=== PATIENT | male | born 1985 | race African-American/Black ===

== ENCOUNTER 2016-05-16 21:42 | Emergency (ER) | payer OTHER ==
[~2016-05-16] VITALS: Ht 175.3 cm; Wt 101.8 kg
[~2016-05-16 21:42] MED LIST: ALBUTEROL SULF8.5 GM IH; AMOXICILLI200 MG/5 M PO; DELTASONE20 M1 PO; FLEXERIL10 MG PO; KEFLEX500 MG PO; MOTRIN600 MG PO; PERCOCET 5/31 TABLET PO; PREDNISONE20 MG PO; PROVENTIL HFA6.7 GM IH; ULTRAM50 MG PO; VENTOLIN HFA18 GM IH
[2016-05-16 21:45] VITALS: BP 140/77
[2016-05-16] MEDS ORDERED: AMOXICILLIN875 MG PO (23:02)
[2016-05-16] MEDS ORDERED: NORCO 5/3251 TABLET PO (23:02)
== END 2016-05-16 23:13 | disposition home or self-care (01) ==
LOC: EXP 21:42 → EME 21:42 → EXP 23:13
DX: R68.84 Jaw pain (principal); K08.89 Other specified disorders of teeth and supporting structures; R60.0 Localized edema
CPT/HCPCS: 99281; 99284

== ENCOUNTER 2016-08-25 20:51 | Emergency (ER) | payer SELFPAY ==
[~2016-08-25] VITALS: Ht 172.7 cm; Wt 105.1 kg
[~2016-08-25 20:51] MED LIST changes: +AMOXICILLIN875 MG PO; +NORCO 5/3251 TABLET PO
[2016-08-25 21:00] VITALS: BP 147/96
[2016-08-25] MEDS ORDERED: AMOXICILLIN500 MG PO (21:56)
[2016-08-25] MEDS ORDERED: NAPROSYN500 MG PO (21:56)
== END 2016-08-25 22:25 | disposition home or self-care (01) ==
LOC: EME 20:51
DX: K08.89 Other specified disorders of teeth and supporting structures (principal)
CPT/HCPCS: 99281; 99284

== ENCOUNTER 2016-09-04 20:24 | Emergency (ER) | payer SELFPAY ==
[~2016-09-04] VITALS: Ht 172.7 cm; Wt 104.8 kg
[~2016-09-04 20:24] MED LIST changes: +AMOXICILLIN500 MG PO; +NAPROSYN500 MG PO
[2016-09-04] MEDS ORDERED: VENTOLIN HFA18 GM IH (21:31)
[2016-09-04 22:21] VITALS: BP 123/84
== END 2016-09-04 22:22 | disposition home or self-care (01) ==
LOC: EME 20:24
DX: S46.912A Strain of unspecified muscle, fascia and tendon at shoulder and upper arm level, left arm, initial encounter (principal); M25.512 Pain in left shoulder; F17.200 Nicotine dependence, unspecified, uncomplicated; X50.0XXA Overexertion from strenuous movement or load, initial encounter; Y93.89 Activity, other specified
CPT/HCPCS: 73030; 73060; 99281; 99283

== ENCOUNTER 2016-12-07 16:22 | Emergency (ER) | payer SELFPAY ==
[~2016-12-07] VITALS: Ht 175.3 cm; Wt 105.8 kg
[2016-12-07] MEDS ORDERED: KEFLEX500 MG PO (16:35)
[2016-12-07 16:52] VITALS: BP 136/82
== END 2016-12-07 16:52 | disposition home or self-care (01) ==
LOC: EME 16:22
DX: S61.211A Laceration without foreign body of left index finger without damage to nail, initial encounter (principal); L03.012 Cellulitis of left finger; W45.8XXA Other foreign body or object entering through skin, initial encounter
CPT/HCPCS: 99281; 99283

== ENCOUNTER 2017-07-06 02:57 | Emergency (ER) | payer SELFPAY ==
[~2017-07-06] VITALS: Ht 175.3 cm; Wt 107.3 kg
[2017-07-06] MEDS ORDERED: AMOXICILLIN500 MG PO (03:25)
[2017-07-06] MEDS ORDERED: NORCO 5/3251 TABLET PO (03:25)
[2017-07-06 03:52] VITALS: BP 161/84
== END 2017-07-06 03:55 | disposition home or self-care (01) ==
LOC: EME 02:57
DX: R68.84 Jaw pain (principal); Z98.890 Other specified postprocedural states; Z88.6 Allergy status to analgesic agent
CPT/HCPCS: 99281; 99283

== ENCOUNTER 2017-08-28 08:14 | Emergency (ER) | payer SELFPAY ==
[~2017-08-28] VITALS: Ht 175.3 cm; Wt 107.9 kg
[2017-08-28 08:25] VITALS: BP 150/80
[2017-08-28] MEDS ORDERED: AMOXICILLIN500 MG PO (22:12)
[2017-08-28] MEDS ORDERED: PERCOCET 5/31 TABLET PO (22:13)
== END 2017-08-28 11:02 | disposition left against medical advice (07) ==
LOC: EME 08:14
DX: R68.84 Jaw pain (principal); Z53.21 Procedure and treatment not carried out due to patient leaving prior to being seen by health care provider

== ENCOUNTER 2017-08-28 20:30 | Emergency (ER) | payer SELFPAY ==
[~2017-08-28] VITALS: Ht 175.3 cm; Wt 108.7 kg
[2017-08-28] MEDS ORDERED: AMOXICILLIN500 MG PO (22:12)
[2017-08-28] MEDS ORDERED: PERCOCET 5/31 TABLET PO (22:13)
[2017-08-28 22:21] VITALS: BP 157/92
== END 2017-08-28 22:21 | disposition home or self-care (01) ==
LOC: EME 20:30
DX: R68.84 Jaw pain (principal); J45.909 Unspecified asthma, uncomplicated; Z87.891 Personal history of nicotine dependence; Z98.890 Other specified postprocedural states; Z88.6 Allergy status to analgesic agent
CPT/HCPCS: 99281; 99284

== ENCOUNTER 2017-11-01 12:26 | Emergency (ER) | payer SELFPAY ==
[~2017-11-01] VITALS: Ht 175.3 cm; Wt 100.6 kg
[2017-11-01] MEDS ORDERED: PERCOCET 5/31 TABLET PO (13:53)
[2017-11-01 14:12] VITALS: BP 107/89
== END 2017-11-01 14:13 | disposition home or self-care (01) ==
LOC: EME 12:26
DX: R68.84 Jaw pain (principal); Z88.6 Allergy status to analgesic agent
CPT/HCPCS: 70110; 99281; 99284

== ENCOUNTER 2017-11-08 20:50 | Emergency (ER) | payer SELFPAY ==
[~2017-11-08] VITALS: Ht 175.3 cm; Wt 101.0 kg
[2017-11-08] MEDS ORDERED: NORCO 5/3251 TABLET PO (21:33)
[2017-11-08] MEDS ORDERED: PERIDEX473 ML MM (21:33)
[2017-11-08] MEDS ORDERED: CLINDAMYCIN HC300 MG PO (21:33)
[2017-11-08 22:02] VITALS: BP 134/88
== END 2017-11-08 22:03 | disposition home or self-care (01) ==
LOC: EXP 20:50 → EME 20:50 → EXP 22:03
DX: R68.84 Jaw pain (principal); Z88.6 Allergy status to analgesic agent
CPT/HCPCS: 99281; 99283

== ENCOUNTER 2017-11-27 04:51 | Emergency (ER) | payer OTHER ==
[~2017-11-27] VITALS: Ht 175.3 cm; Wt 102.4 kg
[~2017-11-27 04:51] MED LIST changes: +CLINDAMYCIN HC300 MG PO; +PERIDEX473 ML MM
[2017-11-27] MEDS ORDERED: NORCO 5/3251 TABLET PO (05:22)
[2017-11-27] MEDS ORDERED: PEN-VEE K,VEET500 MG PO (05:22)
[2017-11-27 05:51] VITALS: BP 142/98
== END 2017-11-27 05:53 | disposition home or self-care (01) ==
LOC: EME 04:51
DX: R68.84 Jaw pain (principal); G89.29 Other chronic pain; Z88.6 Allergy status to analgesic agent

== ENCOUNTER 2017-12-08 01:41 | Emergency (ER) | payer OTHER ==
[~2017-12-08] VITALS: Ht 175.3 cm; Wt 99.4 kg
[~2017-12-08 01:41] MED LIST changes: +PEN-VEE K,VEET500 MG PO
[2017-12-08] MEDS ORDERED: NORCO 5/3251 TABLET PO (03:36)
[2017-12-08] MEDS ORDERED: XYLOCAINE VISC100 ML MM (03:36)
[2017-12-08 03:39] VITALS: BP 158/95
== END 2017-12-08 03:39 | disposition home or self-care (01) ==
LOC: EME 01:41
DX: K08.89 Other specified disorders of teeth and supporting structures (principal); Z88.6 Allergy status to analgesic agent
CPT/HCPCS: 99281; 99283